=== PATIENT | female | born 1960 | race Caucasian/White ===

== ENCOUNTER 2023-12-12 06:47 | Day surgery (SDC) | payer MEDICARE ==
[2023-12-12] MEDS ORDERED: Propofol 200 MG/20 ML SDV ONE (07:14)
[2023-12-12] MEDS ORDERED: fentaNYL 50 MCG/ML SDV ONE (07:14)
[2023-12-12] MEDS ORDERED: Midazolam 1 MG/ML 2 ML SDV ONE (07:14)
[2023-12-12] MEDS: Sodium Chloride 0.9% 1,000 ML IV SCH (07:33)
[2023-12-12 09:57] VITALS: BP 128/73; PULSE 71
== END 2023-12-12 10:05 | disposition home or self-care (01) ==
LOC: JP.SDS 06:47
PROVIDERS: ATTEND Internal Medicine
DX: K21.00 Gastro-esophageal reflux disease with esophagitis, without bleeding (principal); K22.70 Barrett's esophagus without dysplasia; N18.9 Chronic kidney disease, unspecified; R13.10 Dysphagia, unspecified
CPT/HCPCS: 00731-QZ; J2250; J2704; J3010; J7030

== ENCOUNTER 2024-05-14 06:19 | Day surgery (SDC) | payer MEDICARE ==
[2024-05-14] MEDS ORDERED: Midazolam 1 MG/ML 2 ML SDV ONE (07:03)
[2024-05-14] MEDS ORDERED: fentaNYL 50 MCG/ML SDV ONE (07:03)
[2024-05-14] MEDS ORDERED: Propofol 200 MG/20 ML SDV ONE (07:03)
[2024-05-14] MEDS: Lactated Ringers 1,000 ML IV SCH (07:11)
[2024-05-14 09:05] VITALS: BP 128/74; PULSE 63
== END 2024-05-14 09:06 | disposition home or self-care (01) ==
LOC: JP.SDS 06:19
PROVIDERS: ATTEND Surgery
DX: K21.9 Gastro-esophageal reflux disease without esophagitis (principal); E66.9 Obesity, unspecified; Z98.890 Other specified postprocedural states
CPT/HCPCS: 43235; J2250; J2704; J3010; J7120